=== PATIENT | male | born 1995 | race American Indian/Alaskan Native ===

== ENCOUNTER 2021-08-17 12:09 | Emergency (ER) | payer BC ==
[2021-08-17 13:42] VITALS: BP 120/70
--- NOTE | 2021-08-17 13:51 | Emergency Department Report ---
ED Abdominal Pain HPI - General Chief Complaint: Rectal Pain Stated Complaint: CONSTIPATION PUI?: No Time Seen by Provider: 08/17/21 13:49 Source: patient Mode of arrival: Ambulatory Limitations: No Limitations - History of Present Illness Initial Comments: 26 yo AA male comes to ER co abd pain. States he has been constipated and can not have a BM. Abd cramping. No n/v/liquid stools. States he has been eating but unable to stool. Denies narcotic use Abd snt on exam VS normal no fever no peritoneal signs no dysuria no cva tenderness no hemorrhoids on exam MD Complaint: abdominal pain -: Gradual, days(s) Location: diffuse Radiation: none Quality: cramping Consistency: constant Improves With: nothing Worsens With: nothing Associated Symptoms: denies other symptoms - Related Data Previous Rx's Medication Instructions Recorded Last Taken Type Docusate Sodium [Colace] 100 mg PO BID #60 capsule 08/17/21 Unknown Rx Allergies Allergy/AdvReac Type Severity Reaction Status Date / Time No Known Allergies Allergy Unverified 08/17/21 13:41 ED Review of Systems ROS: Stated complaint: CONSTIPATION Other details as noted in HPI Comment: All other systems reviewed and negative ED Past Medical Hx - Past Medical History Previous Medical History?: No - Surgical History Past Surgical History?: No - Family History Family history: no significant - Social History Smoking Status: Current Every Day Smoker Substance Use Type: Alcohol - Medications Home Medications: Home Medications Medication Instructions Recorded Confirmed Last Taken Type Docusate Sodium [Colace] 100 mg PO BID #60 capsule 08/17/21 Unknown Rx ED Physical Exam - General Limitations: No Limitations General appearance: alert, in no apparent distress - Head Head exam: Present: atraumatic, normocephalic - Eye Eye exam: Present: normal appearance - ENT ENT exam: Present: mucous membranes moist - Neck Neck exam: Present: normal inspection - Respiratory Respiratory exam: Present: normal lung sounds bilaterally. Absent: respiratory distress - Cardiovascular Cardiovascular Exam: Present: regular rate, normal rhythm. Absent: systolic murmur, diastolic murmur, rubs, gallop - GI/Abdominal GI/Abdominal exam: Present: soft, normal bowel sounds - Rectal Rectal exam: Present: deferred - Extremities Exam Extremities exam: Present: normal inspection - Back Exam Back exam: Present: normal inspection - Neurological Exam Neurological exam: Present: alert, oriented X3 - Psychiatric Psychiatric exam: Present: normal affect, normal mood - Skin Skin exam: Present: warm, dry, intact, normal color. Absent: rash ED Course Vital Signs 08/17/21 13:41 Temperature 98.3 F Pulse Rate 89 Respiratory 16 Rate Blood Pressure 120/70 [Right] O2 Sat by Pulse 99 Oximetry ED Medical Decision Making - Radiology Data Radiology results: report reviewed, image reviewed stool in rectal vault - Medical Decision Making Vital Signs 08/17/21 13:41 Temperature 98.3 F Pulse Rate 89 Respiratory 16 Rate Blood Pressure 120/70 [Right] O2 Sat by Pulse 99 Oximetry abd xray noted dulcolox NM and Mg citrate given pt taking po ambulatory, non ill appearing. pt dc home with dc plan of care including rx, follow up and diet instructions. He verbalizes understanding of plan of care - Differential Diagnosis constipation/hemorrhoids Critical care attestation.: If time is entered above; I have spent that time in minutes in the direct care of this critically ill patient, excluding procedure time. ED Disposition Clinical Impression: Constipation Disposition: 01 HOME / SELF CARE / HOMELESS Is pt being admited?: No Does the pt Need Aspirin: No Condition: Stable Instructions: Constipation, Adult Additional Instructions: drink a lot of water med as ordered today over the counter suppository if needed high fiber diet follow up with pcp if pain persists referral below Prescriptions: Docusate Sodium [Colace] 100 mg PO BID #60 capsule Referrals: JACI LEMON MD [Staff Physician] - 3-5 Days Forms: Work/School Release Form(ED) Time of Disposition: 13:51
[2021-08-17] MEDS ORDERED: MAGNESIUM CITRATE 300 ML ORAL LIQD PO ONE (14:20)
--- NOTE | 2021-08-17 14:23 | XRay Report ---
PROCEDURE: ABDOMEN FLAT AND UPRIGHT WITH SINGLE VIEW CHEST HISTORY: Abdominal and chest pain. COMPARISON: None. TECHNIQUE: Supine and upright abdominal as well as single view chest radiographs obtained. FINDINGS: Lungs: The lungs are clear. The lung volumes are normal. Pleural Effusion: No evidence of a pleural effusion is seen. Pneumothorax: No evidence of pneumothorax is seen. Cardiac: The heart size is normal. Mediastinal silhouette: The mediastinal silhouette is normal. Hilar regions: The hilar regions are normal in appearance. Pulmonary vascularity: The pulmonary vascularity is normal in appearance. Trachea: The trachea is midline. Skeletal structures: The skeletal structures are normal in appearance. Support hardware: None. Additional findings: None. Bowel: Focal collection of stool overlying the rectum measures up to 7.1 cm in transverse dimension, possibly large stool ball. No distended loops of intestines to suggest obstruction. No evidence of fr ee air is identified. Calcifications: No abnormal calcifications over the kidneys or along the course of the ureters are se en. No phleboliths in the pelvis are seen. Osseous Structures: The skeletal structures are unremarkable in appearance. Additional findings: None. IMPRESSION: Focal collection of stool overlying the rectum measures up to 7.1 cm, possibly large stool ball. No d istended loops of intestines to suggest obstruction. Signer Name: Rikki Johnson MD Signed: 08/17/2021 2:19 PM Workstation Name: [id number]
== END 2021-08-17 15:06 | disposition home or self-care (01) ==
LOC: ED 12:09
DX: K59.00 Constipation, unspecified (principal); F17.200 Nicotine dependence, unspecified, uncomplicated
CPT/HCPCS: 74022; 99283